=== PATIENT | male | born 1955 | race Caucasian/White ===

== ENCOUNTER 2018-10-10 13:44 | Emergency (ER) | payer BC, OTHER ==
[2018-10-10 13:59] VITALS: O2SAT 94
--- NOTE | 2018-10-10 14:35 | ERPHSYRPT ---
- History of Present Illness Time Seen by Provider: 10/10/18 14:00 Source: patient Exam Limitations: no limitations Patient Subjective Stated Complaint: Pt states "My ring is stuck on my finger." Triage Nursing Assessment: Pt alert and oriented X 3, skin pwd. Pt ambulates with an upright steady gait, able to speak in clear full sentences. PT wedding ring stuck on left ring finger. Physician History: 63 y/o white male right handed presents with h/o chronic swelling and tenderness of bilat hands secondary to arthritis. pt wants his wedding ring removed from left 4th digit. tried himself but unsuccessful. nothing new has changed. he has time today to get it removed. Timing/Duration: today Quality: painful Severity: mild Location: hands (left 4th digit) Possible Causes: no cause identified Associated Symptoms: denies symptoms Allergies/Adverse Reactions: Penicillins Allergy (Verified 08/31/16 06:13) Hives Home Medications: Digoxin 10/10/18 [History] Ergocalciferol (Vitamin D2) [Vitamin D2] 10/10/18 [History] Insulin Detemir [Levemir] 10/10/18 [History] Levothyroxine Sodium 10/10/18 [History] Simvastatin 10/10/18 [History] Simvastatin 10/10/18 [History] Hx Tetanus, Diphtheria Vaccination/Date Given: Yes Hx Influenza Vaccination/Date Given: No Hx Pneumococcal Vaccination/Date Given: No Immunizations Up to Date: Yes - Review of Systems Constitutional: No Symptoms Eyes: No Symptoms Ears, Nose, & Throat: No Symptoms Respiratory: No Symptoms Cardiac: No Symptoms Abdominal/Gastrointestinal: No Symptoms Genitourinary Symptoms: No Symptoms Musculoskeletal: No Symptoms, Arthralgias, Joint Pain (left 4th digit) Skin: No Symptoms Neurological: No Symptoms Psychological: No Symptoms Endocrine: No Symptoms Hematologic/Lymphatic: No Symptoms Immunological/Allergic: No Symptoms All Other Systems: Reviewed and Negative - Past Medical History Pertinent Past Medical History: Yes Neurological History: No Pertinent History ENT History: No Pertinent History Cardiac History: High Cholesterol Respiratory History: No Pertinent History Endocrine Medical History: Diabetes Type II Musculoskeletal History: No Pertinent History GI Medical History: No Pertinent History History: No Pertinent History Psycho-Social History: No Pertinent History Male Reproductive Disorders: No Pertinent History - Past Surgical History Past Surgical History: Yes Neuro Surgical History: No Pertinent History Cardiac: No Pertinent History Respiratory: No Pertinent History Gastrointestinal: Appendectomy Genitourinary: No Pertinent History Musculoskeletal: No Pertinent History Male Surgical History: No Pertinent History Other Surgical History: tonsil - Social History Smoking Status: Never smoker Exposure to second hand smoke: No Drug Use: none Patient Lives Alone: No - Nursing Vital Signs Nursing Vital Signs: Initial Vital Signs Temperature 98.7 F 10/10/18 13:55 Pulse Rate 90 10/10/18 13:55 Respiratory Rate 16 10/10/18 13:55 Blood Pressure 181/84 10/10/18 13:55 O2 Sat by Pulse Oximetry 94 L 10/10/18 13:55 Pain Scale Pain Intensity 0 - Physical Exam General Appearance: no apparent distress, alert Eye Exam: PERRL/EOMI Ears, Nose, Throat Exam: normal ENT inspection Neck Exam: normal inspection, non-tender, supple, full range of motion Respiratory Exam: normal breath sounds, lungs clear, airway intact, No chest tenderness, No respiratory distress, No accessory muscle use, No rhonchi, No wheezing, No stridor Cardiovascular Exam: regular rate/rhythm Gastrointestinal/Abdomen Exam: soft, No tenderness Extremity Exam: normal inspection, normal range of motion, swelling, tenderness (left 4th digit with wedding ring unable to remove) Neurologic Exam: alert, oriented x 3, cooperative, 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 no complications. pt camila well - Course Nursing assessment & vital signs reviewed: Yes - Progress Progress: improved Counseled pt/family regarding: diagnosis - Departure Time of Disposition: 14:37 Departure Disposition: Home Clinical Impression: Tight ring on finger Referrals: ARLEN MERLOS MD [Primary Care Provider] -
[2018-10-10 14:41] VITALS: BP 160/82; PULSE 86
== END 2018-10-10 14:45 | disposition home or self-care (01) ==
LOC: ED 13:44
DX: M79.645 Pain in left finger(s) (principal); S60.455A Superficial foreign body of left ring finger, initial encounter
CPT/HCPCS: 99283